=== PATIENT | female | born 1985 | race American Indian/Alaskan Native ===

== ENCOUNTER 2019-04-21 02:11 | Emergency (ER) | payer SELFPAY ==
[2019-04-21] MEDS ORDERED: SOLU-Medrol IV ONE (02:42)
[2019-04-21] MEDS ORDERED: BENADRYL IV ONE (02:42)
[2019-04-21] MEDS ORDERED: PEPCID IV ONE (02:42)
--- NOTE | 2019-04-21 03:03 | Emergency Department Report ---
ED Allergic Reaction HPI - General Chief complaint: Allergic Reaction Stated complaint: ALLERGIC REACTION Time Seen by Provider: 04/21/19 02:42 Source: patient Mode of arrival: Ambulatory Limitations: No Limitations - History of Present Illness Initial Comments: Patient is 33 years old female with no significant past medical history. Patient presented to the ER complaining of allergic reaction that happen morning. Patient stated that she took ibuprofen but she also added that she ate some barbecue with new seasoning and that by be the cause still. Patient is not taking any medication. She took Benadryl before she is coming. Patient is complaining of facial swelling and generalized itching. Patient denied any difficulty swallowing or difficulty breathing. MD Complaint: allergic reaction, facial swelling -: Sudden, This morning Exposure: unknown, food, medication Symptoms: rash, itching, facial swelling, lip swelling, difficulty breathing Severity: moderate Treatment Prior to Arrival: benadryl Previous Allergy History: none - Related Data Allergies Allergy/AdvReac Type Severity Reaction Status Date / Time No Known Allergies Allergy Verified 04/21/19 02:15 ED Review of Systems ROS: Stated complaint: ALLERGIC REACTION Other details as noted in HPI Comment: All other systems reviewed and negative Constitutional: denies: chills, diaphoresis Respiratory: denies: cough, orthopnea, shortness of breath Cardiovascular: denies: chest pain, palpitations, dyspnea on exertion Gastrointestinal: denies: abdominal pain, nausea, vomiting Musculoskeletal: denies: back pain Neurological: denies: headache, weakness, numbness, paresthesias, confusion ED Past Medical Hx - Past Medical History Previous Medical History?: No - Surgical History Past Surgical History?: No - Social History Smoking Status: Current Every Day Smoker ED Physical Exam - General Limitations: No Limitations General appearance: alert - Head Head exam: Present: atraumatic, normocephalic, normal inspection - Eye Eye exam: Present: periorbital swelling - ENT ENT exam: Present: other (lips swelling, no tongue swelling or uvular swelling.) - Neck Neck exam: Present: normal inspection, full ROM. Absent: tenderness, meningismus, lymphadenopathy, thyromegaly - Respiratory Respiratory exam: Present: normal lung sounds bilaterally. Absent: respiratory distress, wheezes, rales, rhonchi, stridor, chest wall tenderness, accessory muscle use, decreased breath sounds, prolonged expiratory - Cardiovascular Cardiovascular Exam: Present: regular rate, normal rhythm, normal heart sounds - GI/Abdominal GI/Abdominal exam: Present: soft, normal bowel sounds. Absent: distended, tenderness, guarding, rebound, rigid, organomegaly, mass, bruit, pulsatile mass, hernia - Extremities Exam Extremities exam: Present: normal inspection, full ROM, normal capillary refill. Absent: pedal edema, calf tenderness - Back Exam Back exam: Present: normal inspection, full ROM. Absent: CVA tenderness (R), CVA tenderness (L), muscle spasm, paraspinal tenderness, vertebral tenderness - Neurological Exam Neurological exam: Present: alert, oriented X3, CN II-XII intact, normal gait, reflexes normal - Psychiatric Psychiatric exam: Present: normal mood - Skin Skin exam: Present: warm, intact, normal color ED Course Vital Signs 04/21/19 04/21/19 04/21/19 02:14 02:45 03:01 Temperature 98.1 F 98.3 F Pulse Rate 106 H 101 H Respiratory 18 18 Rate Blood Pressure 127/65 126/75 Blood Pressure 126/75 [Left] O2 Sat by Pulse 97 97 100 Oximetry 04/21/19 03:31 Temperature Pulse Rate Respiratory Rate Blood Pressure 126/75 Blood Pressure [Left] O2 Sat by Pulse 99 Oximetry ED Medical Decision Making - Medical Decision Making Patient is 33 years old female with no significant past medical history. Patient presented to the ER complaining of allergic reaction that happen morning. Patient stated that she took ibuprofen but she also added that she ate some barbecue with new seasoning and that by be the cause still. Patient is not taking any medication. She took Benadryl before she is coming. Patient is complaining of facial swelling and generalized itching. Patient denied any difficulty swallowing or difficulty breathing. Patient received Benadryl, Solu-Medrol and Pepcid. The patient stated that she is feeling much better. The swelling subsides significantly. Patient is still denying any difficulty breathing or difficulty swallowing. Patient given prescription for Benadryl, Pepcid and prednisone and advised to follow-up with her private physician in the next 2-3 days. Patient also advised to return to the ER if symptoms are not improved. Critical care attestation.: If time is entered above; I have spent that time in minutes in the direct care of this critically ill patient, excluding procedure time. ED Disposition Clinical Impression: Allergic reaction Disposition: DC- TO HOME OR SELFCARE Is pt being admited?: No Condition: Stable Instructions: Food Allergy (ED) Referrals: PRIMARY CARE,MD [Primary Care Provider] - 3-5 Days
[2019-04-21 05:57] VITALS: BP 124/81
== END 2019-04-21 05:25 | disposition home or self-care (01) ==
LOC: ED 02:11
DX: T78.40XA Allergy, unspecified, initial encounter (principal); F17.200 Nicotine dependence, unspecified, uncomplicated; X58.XXXA Exposure to other specified factors, initial encounter; Y93.89 Activity, other specified; Y92.89 Other specified places as the place of occurrence of the external cause; Y99.8 Other external cause status
CPT/HCPCS: 96374; 96375; 99282; J1200; J2930

== ENCOUNTER 2021-06-13 14:38 | Emergency (ER) | payer SELFPAY ==
[2021-06-13 15:08] VITALS: BP 136/87
--- NOTE | 2021-06-13 15:19 | Emergency Department Report ---
ED General Adult HPI - General Chief complaint: Earache Stated complaint: BOTH EARS LEAKING FLUID Time Seen by Provider: 06/13/21 15:05 Source: patient Mode of arrival: Ambulatory Limitations: No Limitations - History of Present Illness Initial comments: This pleasant 35-year-old female presents emergency department chief complaint of bilateral ear drainage over the past month. She denies any pain. She denies associated fever, chills, night sweats, headache, dizziness, or vision, nausea,, diarrhea, chest pain, shortness of breath, weakness or any other associated symptoms. - Related Data Previous Rx's Medication Instructions Recorded Last Taken Type Famotidine [Pepcid] 40 mg PO QHS #5 tablet 04/21/19 Unknown Rx Prednisone [predniSONE 10 mg 10 mg PO .TAPER #1 tab.ds.pk 04/21/19 Unknown Rx (6-Day Pack, 21 Tabs)] diphenhydrAMINE [Benadryl CAP] 25 mg PO Q8HR PRN #20 capsule 04/21/19 Unknown Rx Ofloxacin 0.3% [Floxin 0.3% Otic] 10 ml OT Q6HR #1 bottle 06/13/21 Unknown Rx Allergies Allergy/AdvReac Type Severity Reaction Status Date / Time No Known Allergies Allergy Verified 04/21/19 02:15 ED Review of Systems ROS: Stated complaint: BOTH EARS LEAKING FLUID Other details as noted in HPI Comment: All other systems reviewed and negative Constitutional: denies: chills, fever Eyes: denies: eye pain, eye discharge, vision change ENT: denies: ear pain, throat pain Respiratory: denies: cough, shortness of breath, wheezing Cardiovascular: denies: chest pain, palpitations Endocrine: no symptoms reported Gastrointestinal: denies: abdominal pain, nausea, diarrhea Genitourinary: denies: urgency, dysuria, discharge Musculoskeletal: denies: back pain, joint swelling, arthralgia Skin: denies: rash, lesions Neurological: denies: headache, weakness, paresthesias Psychiatric: denies: anxiety, depression Hematological/Lymphatic: denies: easy bleeding, easy bruising ED Past Medical Hx - Past Medical History Previous Medical History?: No - Surgical History Past Surgical History?: No - Social History Smoking Status: Current Every Day Smoker Substance Use Type: Alcohol - Medications Home Medications: Home Medications Medication Instructions Recorded Confirmed Last Taken Type Famotidine [Pepcid] 40 mg PO QHS #5 tablet 04/21/19 Unknown Rx Prednisone [predniSONE 10 mg 10 mg PO .TAPER #1 tab.ds.pk 04/21/19 Unknown Rx (6-Day Pack, 21 Tabs)] diphenhydrAMINE [Benadryl CAP] 25 mg PO Q8HR PRN #20 capsule 04/21/19 Unknown Rx Ofloxacin 0.3% [Floxin 0.3% Otic] 10 ml OT Q6HR #1 bottle 06/13/21 Unknown Rx ED Physical Exam - General Limitations: No Limitations General appearance: alert, in no apparent distress - Head Head exam: Present: atraumatic, normocephalic - Eye Eye exam: Present: normal appearance, PERRL, EOMI Pupils: Present: normal accommodation - ENT ENT exam: Present: normal exam, normal orophraynx, mucous membranes moist. Absent: normal external ear exam (External auditory canal bilaterally is erythematous with purulent material. Tympanic membrane is normal. There is no mastoid tenderness bilaterally. No pain with palpation of the tragus department or with manipulation of the external ear) - Neck Neck exam: Present: normal inspection, full ROM. Absent: tenderness, meningismus - Respiratory Respiratory exam: Present: normal lung sounds bilaterally. Absent: respiratory distress, wheezes, rales, rhonchi, stridor - Cardiovascular Cardiovascular Exam: Present: regular rate, normal rhythm. Absent: systolic murmur, diastolic murmur, rubs, gallop - GI/Abdominal GI/Abdominal exam: Present: soft, normal bowel sounds - Extremities Exam Extremities exam: Present: normal inspection - Back Exam Back exam: Present: normal inspection - Neurological Exam Neurological exam: Present: alert, oriented X3 - Psychiatric Psychiatric exam: Present: normal affect, normal mood - Skin Skin exam: Present: warm, dry, intact, normal color. Absent: rash ED Course Vital Signs 06/13/21 15:07 Temperature 98.2 F Pulse Rate 91 H Respiratory 16 Rate Blood Pressure 136/87 [Right] O2 Sat by Pulse 99 Oximetry ED Medical Decision Making - Medical Decision Making Patient exam was consistent with otitis externa. Will treat with topical antibiotics. Outpatient follow-up with PCP provided - Differential Diagnosis Otitis externa, otitis media, mastoiditis Critical care attestation.: If time is entered above; I have spent that time in minutes in the direct care of this critically ill patient, excluding procedure time. ED Disposition Clinical Impression: Otitis externa of both ears Qualifiers: Otitis externa type: unspecified type Chronicity: acute Qualified Code(s): H60.503 - Unspecified acute noninfective otitis externa, bilateral Disposition: 01 HOME / SELF CARE / HOMELESS Is pt being admited?: No Condition: Stable Prescriptions: Ofloxacin 0.3% [Floxin 0.3% Otic] 10 ml OT Q6HR #1 bottle Referrals: [facility] [Provider Group] - 3-5 Days Time of Disposition: 15:17
== END 2021-06-13 15:41 | disposition home or self-care (01) ==
LOC: ED 14:38
DX: H60.93 Unspecified otitis externa, bilateral (principal); F17.200 Nicotine dependence, unspecified, uncomplicated; Z72.89 Other problems related to lifestyle; Z79.899 Other long term (current) drug therapy
CPT/HCPCS: 99281